=== PATIENT | female | born 1975 | race Caucasian/White ===

== ENCOUNTER 2019-03-27 12:17 | Emergency (ER) | payer MEDICAID, OTHER ==
[~2019-03-27] VITALS: Ht 157.5 cm; Wt 91.6 kg
[~2019-03-27 12:17] MED LIST: HYDR-4011 PO; IBUP-1542 PO
[2019-03-27 12:40] VITALS: Ht 157.5 cm; Wt 91.6 kg
[2019-03-27] MEDS ORDERED: KETOROLAC 60 MG INJ IM STA (15:25)
[2019-03-27] MEDS ORDERED: HYDROCODONE/APAP (5/325) TAB PO ONE (15:30)
[2019-03-27 17:07] VITALS: BP 134/82; PULSE 74; RESP 18
== END 2019-03-27 17:08 | disposition home or self-care (01) ==
LOC: FTE 12:17
DX: M51.86 Other intervertebral disc disorders, lumbar region (principal)
CPT/HCPCS: 72131; 81025; 96372; J1885; Z7502; Z7610